=== PATIENT | male | born 1975 | race Caucasian/White ===

== ENCOUNTER 2024-11-03 11:47 | Inpatient (IN) | payer BC, OTHER ==
[2024-11-03 12:45] VITALS: BMI 19.6
[2024-11-03] MEDS ORDERED: LOPERAMIDE HCL 2 MG CAPSULE PO PRN (13:13)
[2024-11-03] MEDS ORDERED: BENZOCAINE/MENTHOL (CHLORASEPTIC ) LOZENGE MM PRN (13:13)
[2024-11-03] MEDS ORDERED: NICOTINE POLACRILEX 2 MG GUM BUC PRN (13:13)
[2024-11-03] MEDS ORDERED: MAG HYDROX/AL HYDROX/SIMETH 30 ML UNIT-DOSE CUP PO PRN (13:13)
[2024-11-03] MEDS ORDERED: NALOXONE (NARCAN) HCL 4 MG/0.1 ML SPRAY NS PRN (13:13)
[2024-11-03] MEDS ORDERED: ONDANSETRON *ODT* 4 MG TABLET SL PRN (13:13)
[2024-11-03] MEDS ORDERED: DICYCLOMINE HCL 10 MG CAPSULE PO PRN (13:13)
[2024-11-03] MEDS ORDERED: IBUPROFEN 400 MG TABLET (FP) PO PRN (13:13)
[2024-11-03] MEDS ORDERED: BENZONATATE 200 MG CAPSULE PO PRN (13:13)
[2024-11-03] MEDS ORDERED: NICOTINE POLACRILEX 2 MG LOZENGE BC PRN (13:13)
[2024-11-03] MEDS ORDERED: BISMUTH SUBSALICYLATE 524 MG/30 ML PO PRN (13:13)
[2024-11-03] MEDS ORDERED: P-EPHED 60MG/TRIPROLIDI 2.5MG TABLET PO PRN (13:13)
[2024-11-03] MEDS ORDERED: POLYETHYLENE GLYCOL (HEALTHYLAX) 3350 17 GM PACKET PO PRN (13:13)
[2024-11-03] MEDS ORDERED: guaiFENesin 600 MG TABLET.ER (FP) PO PRN (13:13)
[2024-11-03] MEDS ORDERED: methaDONE HCL 10 MG TABLET (FOR DETOX USE ONLY) PO ONE (17:00)
[2024-11-03] MEDS: IBUPROFEN 600 MG TABLET (FP) PO PRN (17:13)
[2024-11-03] MEDS: MAGNESIUM HYDROX 2400MG/30ML ORAL SUSPENSION 30 ML CUP PO PRN (17:16)
[2024-11-03] MEDS: MELATONIN 5 MG TABLETS PO SCH (22:16)
[2024-11-03] MEDS: METHOCARBAMOL 500 MG TABLET PO PRN (22:17)
[2024-11-03] MEDS: THIAMINE 100 MG TABLET PO SCH (22:17)
[2024-11-03] MEDS: cloNIDine HCL 0.1 MG TABLET PO PRN (23:24)
[2024-11-04] MEDS: ACETAMINOPHEN 325 MG TABLET (FP) PO PRN (01:28)
[2024-11-04] MEDS: PRENATAL VITAMINS W/ FOLIC ACID TABLET (FP) PO SCH (09:34)
[2024-11-04] MEDS: methaDONE HCL 10 MG TABLET (FOR DETOX USE ONLY) PO ONE (09:35)
[2024-11-04 11:22] LABS: HEMATOCRIT 42.9 % (35.4-49); HEMOGLOBIN 14.7 GM/dL (11.7-16.9); MCHC 34.1 g/dl (32.0-35.9); MEAN CELL VOLUME 90.9 fl (80-96); MEAN PLT VOLUME 8.2 fl (7.5-11.1); PLATELET COUNT 236 10^3/uL (134-434); RBC 4.72 M/mm3 (4.00-5.60); RDW 15.1 % (11.9-15.9); WHITE BLOOD COUNT 6.9 K/mm3 (4.0-10.0)
[2024-11-04 11:25] LABS: POTASSIUM 4.3 mmol/L (3.5-5.1)
[2024-11-04 11:35] LABS: ALBUMIN 3.5 g/dl (3.4-5.0); BILIRUBIN,TOTAL 0.6 mg/dL (0.2-1); CALCIUM 9.1 mg/dL (8.5-10.1); TOT PROT 5.9 g/dl (6.4-8.2)
[2024-11-04 11:36] LABS: BLOOD UREA NITROGEN 8.3 mg/dL (7-18)
[2024-11-04] MEDS: CLOTRIMAZOLE 1% CREAM TP SCH (13:07)
[2024-11-04] MEDS: SUVOREXANT 10 MG TABLET PO PRN (22:14)
[2024-11-05 06:47] VITALS: BP 121/81; PULSE 60; RESP 16; TEMP 97.6
[2024-11-06] MEDS ORDERED: methaDONE HCL 10 MG TABLET (FOR DETOX USE ONLY) PO ONE (10:00)
== END 2024-11-05 09:10 | disposition left against medical advice (07) | DRG 894 ==
LOC: YASAS 11:47 → Y6N 13:36
PROVIDERS: ADMIT Allergy & Immunology; ATTEND Allergy & Immunology
PROC: HZ2ZZZZ Detoxification Services for Substance Abuse Treatment (ICD-10-PCS; principal; 2024-11-03)
DX: F11.23 Opioid dependence with withdrawal (principal); F19.282 Other psychoactive substance dependence with psychoactive substance-induced sleep disorder; F12.20 Cannabis dependence, uncomplicated; F17.210 Nicotine dependence, cigarettes, uncomplicated; F31.9 Bipolar disorder, unspecified; F41.9 Anxiety disorder, unspecified; F39 Unspecified mood [affective] disorder; B35.6 Tinea cruris
CPT/HCPCS: 36415; 80053; 80305; 80307; 85027; 86780; 93005; 93010